=== PATIENT | male | born 1955 | race Caucasian/White ===

== ENCOUNTER 2018-02-04 12:07 | Emergency (ER) | payer MEDICAID ==
[~2018-02-04] VITALS: Ht 190.5 cm; Wt 75.0 kg
[~2018-02-04 12:07] MED LIST: BACT800T5 PO; HYDR-3535 PO; ONDA1TAB16 PO; XANA2TAB2 PO
[2018-02-04 12:22] VITALS: BP 118/76; PULSE 96; RESP 16; TEMP 97.3; O2SAT 99
[2018-02-04 14:13] LABS: AUTOMATED NEUTROPHIL # 5.6 TH/MM3 (1.8-7.7); BASOPHIL % 0.4 % (0.0-2.0); EOSINOPHIL # 0.2 TH/MM3 (0-0.4); EOSINOPHIL % 2.5 % (0.0-4.0); HEMATOCRIT 42.3 % (39.0-51.0); HEMOGLOBIN 13.4 GM/DL (13.0-17.0); LYMPH % 25.3 % (9.0-44.0); LYMPHOCYTE # 2.3 TH/MM3 (1.0-4.8); MEAN CELL VOLUME 83.8 FL (80.0-100.0); MEAN CORPUSCULAR HEMOGLOBIN 26.5 PG (27.0-34.0); MEAN CORPUSCULAR HGB CONC 31.6 % (32.0-36.0); MEAN PLATELET VOLUME 9.1 FL (7.0-11.0); NEUT % 60.8 % (16.0-70.0); PLATELET COUNT 222 TH/MM3 (150-450); RED BLOOD COUNT 5.05 MIL/MM3 (4.50-5.90); RED CELL DISTRIBUTION WIDTH 14.9 % (11.6-17.2); WHITE BLOOD COUNT 9.2 TH/MM3 (4.0-11.0)
[2018-02-04 14:22] LABS: BILIRUBIN, URINE NEG (NEG); BLOOD, URINE NEG (NEG); GLUCOSE,URINE NEG (NEG); KETONE, URINE NEG (NEG); MUCUS URINE FEW /lpf (OCC); NITRITE,URINE NEG (NEG); SQUAMOUS EPITHELIAL CELL URINE 2 /hpf (0-5); URINE COLOR YELLOW (YELLW/STRAW); URINE LEUKOCYTE ESTERASE NEG (NEG)
[2018-02-04 14:31] LABS: ALBUMIN 3.5 GM/DL (3.4-5.0); ALT (GPT) 25 U/L (12-78); AST (GOT) 18 U/L (15-37); BICARBONATE 27.7 MEQ/L (21.0-32.0); BLOOD UREA NITROGEN 15 MG/DL (7-18); CALCIUM 8.8 MG/DL (8.5-10.1); CHLORIDE 107 MEQ/L (98-107); CREATININE 0.78 MG/DL (0.60-1.30); GLOMERULAR FILTRATION RATE 101 ML/MIN (>89); GLUCOSE,RANDOM 96 MG/DL (74-106); SODIUM (NA) 140 MEQ/L (136-145)
[2018-02-04 14:33] LABS: ALKALINE PHOSPHATASE 89 U/L (45-117); TOTAL BILIRUBIN ADULT 0.5 MG/DL (0.2-1.0)
--- NOTE | 2018-02-04 14:34 | PD ---
HPI Chief Complaint: General Weakness Time Seen by Provider: 14:33 Travel History International Travel<30 days: No Contact w/Intl Traveler<30days: No Traveled to known affect area: No History of Present Illness HPI 62-year-old male presents emergency department for evaluation of generalized weakness. Patient states this is been worsening over weeks to months to years. He states that he has had a decreased appetite. He tells me that he had a missed diagnosis of cancer and was on hospice and he lost a tremendous amount of weight. He tells me that he was discharged from hospice and he had a recent hospitalization at [facility] for a right lower lobe pneumonia. During that stay they identified a brain tumor. He tells me that he has been feeling tired and would like this evaluated. Denies any fever chills. Denies any chest or tightness. No difficulty breathing. No hematochezia or hematemesis. No other symptoms to report. PFSH Past Medical History Diminished Hearing: No Immunizations Current: Yes Past Surgical History Abdominal Surgery: Yes (peg tube) Social History Alcohol Use: No Tobacco Use: Yes (2 CIGARS DAILY) Substance Use: No Allergies-Medications (Allergen,Severity, Reaction): Coded Allergies: No Known Allergies (Unverified Adverse Reaction, Unknown, 02/04/18) Reported Meds & Prescriptions Reported Meds & Active Scripts Active Zofran Tab (Ondansetron HCl) 4 Mg Tab 4 Mg PO Q6 PRN Bactrim DS (Sulfamethoxazole-Trimethoprim DS) 1 Tab Tab 1 Tab PO BID Reported Xanax 2 mg (Alprazolam) Alprazolam 2 mg Tab 1 Tab PO Q6H Lortab 10 mg/325 mg (Hydrocodone/Acetaminophen 10 mg/325 mg) 1 Tab 1 Tab PO Q4H PRN Review of Systems Except as stated in HPI: all other systems reviewed are Neg Physical Exam Narrative GENERAL: Well-nourished male patient, sitting in bed, in no acute distress. SKIN: Focused skin assessment warm/dry. HEAD: Atraumatic. Normocephalic. EYES: Pupils equal and round. No scleral icterus. No injection or drainage. ENT: No nasal bleeding or discharge. Mucous membranes pink and moist. NECK: Trachea midline. No JVD. CARDIOVASCULAR: Regular rate and rhythm. No murmur appreciated. RESPIRATORY: No accessory muscle use. Clear to auscultation. Breath sounds equal bilaterally. GASTROINTESTINAL: Abdomen soft, non-tender, nondistended. Hepatic and splenic margins not palpable. MUSCULOSKELETAL: No obvious deformities. No clubbing. No cyanosis. No edema. NEUROLOGICAL: Awake and alert. No obvious cranial nerve deficits. Motor grossly within normal limits. Normal speech. PSYCHIATRIC: Bizarre affect Data Data Last Documented VS Vital Signs Date Time Temp Pulse Resp B/P (MAP) Pulse Ox O2 Delivery O2 Flow Rate FiO2 02/04/18 14:51 82 18 106/73 (84) 100 Room Air 02/04/18 12:22 97.3 Orders Orders Complete Blood Count With Diff (02/04/18 12:27) Comprehensive Metabolic Panel (02/04/18 12:27) Urinalysis - C+S If Indicated (02/04/18 12:27) Iv Access Insert/Monitor (02/04/18 12:27) Electrocardiogram (02/04/18 ) Chest, Single Ap (02/04/18 ) Ed Discharge Order (02/04/18 15:25) Labs Laboratory Tests Test 02/04/18 12:40 White Blood Count 9.2 TH/MM3 Red Blood Count 5.05 MIL/MM3 Hemoglobin 13.4 GM/DL Hematocrit 42.3 % Mean Corpuscular Volume 83.8 FL Mean Corpuscular Hemoglobin 26.5 PG Mean Corpuscular Hemoglobin Concent 31.6 % Red Cell Distribution Width 14.9 % Platelet Count 222 TH/MM3 Mean Platelet Volume 9.1 FL Neutrophils (%) (Auto) 60.8 % Lymphocytes (%) (Auto) 25.3 % Monocytes (%) (Auto) 11.0 % Eosinophils (%) (Auto) 2.5 % Basophils (%) (Auto) 0.4 % Neutrophils # (Auto) 5.6 TH/MM3 Lymphocytes # (Auto) 2.3 TH/MM3 Monocytes # (Auto) 1.0 TH/MM3 Eosinophils # (Auto) 0.2 TH/MM3 Basophils # (Auto) 0.0 TH/MM3 CBC Comment DIFF FINAL Differential Comment Urine Color YELLOW Urine Turbidity CLEAR Urine pH 8.0 Urine Specific [place] 1.015 Urine Protein NEG mg/dL Urine Glucose (UA) NEG mg/dL Urine Ketones NEG mg/dL Urine Occult Blood NEG Urine Nitrite NEG Urine Bilirubin NEG Urine Urobilinogen LESS THAN 2.0 MG/DL Urine Leukocyte Esterase NEG Urine RBC 2 /hpf Urine WBC 1 /hpf Urine Squamous Epithelial Cells 2 /hpf Urine Mucus FEW /lpf Microscopic Urinalysis Comment CULT NOT INDICATED Blood Urea Nitrogen 15 MG/DL Creatinine 0.78 MG/DL Random Glucose 96 MG/DL Total Protein 8.0 GM/DL Albumin 3.5 GM/DL Calcium Level 8.8 MG/DL Alkaline Phosphatase 89 U/L Aspartate Amino Transf (AST/SGOT) 18 U/L Alanine Aminotransferase (ALT/SGPT) 25 U/L Total Bilirubin 0.5 MG/DL Sodium Level 140 MEQ/L Potassium Level 4.2 MEQ/L Chloride Level 107 MEQ/L Carbon Dioxide Level 27.7 MEQ/L Anion Gap 5 MEQ/L Estimat Glomerular Filtration Rate 101 ML/MIN [facility] Medical Decision Making Medical Screen Exam Complete: Yes Emergency Medical Condition: Yes Medical Record Reviewed: Yes Differential Diagnosis Electrolyte abnormality versus fatigue versus chronic illness versus pneumonia versus sepsis versus UTI Narrative Course 62-year-old male presents emergency department for evaluation. Patient appears without distress. Laboratory Tests Test 02/04/18 12:40 White Blood Count 9.2 TH/MM3 Red Blood Count 5.05 MIL/MM3 Hemoglobin 13.4 GM/DL Hematocrit 42.3 % Mean Corpuscular Volume 83.8 FL Mean Corpuscular Hemoglobin 26.5 PG Mean Corpuscular Hemoglobin Concent 31.6 % Red Cell Distribution Width 14.9 % Platelet Count 222 TH/MM3 Mean Platelet Volume 9.1 FL Neutrophils (%) (Auto) 60.8 % Lymphocytes (%) (Auto) 25.3 % Monocytes (%) (Auto) 11.0 % Eosinophils (%) (Auto) 2.5 % Basophils (%) (Auto) 0.4 % Neutrophils # (Auto) 5.6 TH/MM3 Lymphocytes # (Auto) 2.3 TH/MM3 Monocytes # (Auto) 1.0 TH/MM3 Eosinophils # (Auto) 0.2 TH/MM3 Basophils # (Auto) 0.0 TH/MM3 CBC Comment DIFF FINAL Differential Comment Urine Color YELLOW Urine Turbidity CLEAR Urine pH 8.0 Urine Specific [place] 1.015 Urine Protein NEG mg/dL Urine Glucose (UA) NEG mg/dL Urine Ketones NEG mg/dL Urine Occult Blood NEG Urine Nitrite NEG Urine Bilirubin NEG Urine Urobilinogen LESS THAN 2.0 MG/DL Urine Leukocyte Esterase NEG Urine RBC 2 /hpf Urine WBC 1 /hpf Urine Squamous Epithelial Cells 2 /hpf Urine Mucus FEW /lpf Microscopic Urinalysis Comment CULT NOT INDICATED Blood Urea Nitrogen 15 MG/DL Creatinine 0.78 MG/DL Random Glucose 96 MG/DL Total Protein 8.0 GM/DL Albumin 3.5 GM/DL Calcium Level 8.8 MG/DL Alkaline Phosphatase 89 U/L Aspartate Amino Transf (AST/SGOT) 18 U/L Alanine Aminotransferase (ALT/SGPT) 25 U/L Total Bilirubin 0.5 MG/DL Sodium Level 140 MEQ/L Potassium Level 4.2 MEQ/L Chloride Level 107 MEQ/L Carbon Dioxide Level 27.7 MEQ/L Anion Gap 5 MEQ/L Estimat Glomerular Filtration Rate 101 ML/MIN Lab work is reviewed. Discussed the patient my attending physician. Patient will be discharged home at this time. Diagnosis Primary Impression: Fatigue Qualified Codes: R53.83 - Other fatigue Referrals: Primary Care Physician Patient Instructions: General Instructions, Weakness (ED) Additional Instructions: Follow-up with a primary care provider Return immediately with acute worsening symptoms Med/Other Pt SpecificInfo: No Change to Meds Disposition: 01 DISCHARGE HOME Condition: Stable MariaaFariba DAVIS Feb 04, 2018 14:34
[2018-02-04 14:51] VITALS: BP 106/73; PULSE 82; RESP 18; O2SAT 100
--- NOTE | 2018-02-04 15:21 | RADRPT ---
EXAM DATE/TIME: 02/04/2018 15:08 [place] COMPARISON: No previous studies available for comparison. INDICATIONS : Weakness. MEDICAL HISTORY : Valdez's esophagus, currently found out of a brain tumor SURGICAL HISTORY : None. ENCOUNTER: Initial ACUITY: 1 day PAIN SCORE: 0/10 LOCATION: Bilateral chest FINDINGS: Patchy mixed interstitial and parenchymal opacities in the right mid to lower lung zones with associa lv volume loss and slight mediastinal shift to the right. Left lung is clear. Cardiomediastinal cont ours are within normal limits. Bony thorax is intact. CONCLUSION: 1. Mixed patchy interstitial and parenchymal opacities in the right mid to lower lung zones with asso ciated volume loss. Suspect findings are chronic in etiology although chronicity cannot be confirmed given lack of prior exams. Bertram Rivera MD on February 04, 2018 at 15:17 Board Certified Radiologist. This report was verified electronically.
--- NOTE | 2018-02-06 09:19 | EKG ---
Date Performed: 02/04/2018 Time Performed: 14:57:24 PTAGE: 62 years EKG: Sinus rhythm WITH OCCASIONAL VENTRICULAR PREMATURE COMPLEXES BORDERLINE ECG NO PREVIOUS TRACING DOCTOR: Siena Winston Interpretating Date/Time 02/06/2018 09:13:45
== END 2018-02-04 15:56 | disposition home or self-care (01) ==
LOC: NEPE 12:07
DX: R53.83 Other fatigue (principal); Z72.0 Tobacco use; R94.31 Abnormal electrocardiogram [ECG] [EKG]
CPT/HCPCS: 71045; 80053; 81001; 85025; 93005; 99285